=== PATIENT | female | born 1960 | race African-American/Black ===

== ENCOUNTER 2019-06-15 09:32 | Emergency (ER) | payer OTHER ==
[2019-06-15] MEDS ORDERED: IPRATROPIUM BROM 0.5MG/2.5ML ONE (10:02)
[2019-06-15] MEDS ORDERED: LEVALBUTEROL 1.25 MG/3 ML NEB ONE (10:02)
[2019-06-15] MEDS ORDERED: METHYLPREDNISOLONE 125 MG INJ ONE (10:02)
[2019-06-15] MEDS ORDERED: NA CHLORIDE 0.9% 1,000 ML ONE (10:03)
[2019-06-15] MEDS ORDERED: MAGNESIUM SULFATE 1 gm IVPB 1 GM/100 ML BAG IV ONE (10:03)
--- NOTE | 2019-06-15 10:36 | RAD REPORT ---
EXAM DESCRIPTION: RAD - Chest Single View - 06/15/2019 10:25 am CLINICAL HISTORY: SOB Chest pain. COMPARISON: Chest Pa And Lat (2 Views) dated 03/25/2018; CHEST PA AND LAT 2 VIEW dated 12/19/2007; CHES T PA AND LAT 2 VIEW dated 11/15/2000 FINDINGS: Portable technique limits examination quality. The lungs are grossly clear. The heart is normal in size. No displaced fractures. IMPRESSION: No acute intrathoracic process suspected.
--- NOTE | 2019-06-15 12:36 | ER ---
Nurse's Notes [facility] Name: Betsy Escoto Age: 58 yrs Sex: Female : 1960 Arrival Date: 06/15/2019 Time: 09:35 Bed 2 Private MD: Diagnosis: Asthma Presentation: 06/15 09:46 Presenting complaint: Patient states: SOB x 3 days that got worse today. Pt states aa5 "It's my asthma". Transition of care: patient was not received from another setting of care. Onset of symptoms was June 15, 2019. Risk Assessment: Do you want to hurt yourself or someone else? Patient reports no desire to harm self or others. Care prior to arrival: None. 09:46 Acuity: SABINO 3 aa5 09:46 Method Of Arrival: Ambulatory aa5 Historical: - Allergies: 09:47 Aleve; aa5 09:48 Advil; aa5 - PMHx: 09:48 Asthma; aa5 - PSHx: 09:48 Hysterectomy; aa5 - Immunization history:: Pneumococcal vaccine is up to date, Flu vaccine is not up to date. - Social history:: Smoking status: Patient/guardian denies using tobacco. - Ebola Screening: : No symptoms or risks identified at this time. - Family history:: not pertinent. - Hospitalizations: : No recent hospitalization is reported. Screenin:15 Abuse screen: Denies threats or abuse. Denies injuries from another. Nutritional sg screening: No deficits noted. Tuberculosis screening: No symptoms or risk factors identified. Never had TB. Fall Risk None identified. Assessment: 10:15 General: Appears in no apparent distress. well groomed, well developed, well nourished, sg Behavior is calm, cooperative, appropriate for age. Pain: Denies pain. Neuro: Level of Consciousness is awake, alert, obeys commands, Oriented to person, place, time, Professor Of German are equal bilaterally Moves all extremities. Speech is normal, Facial symmetry appears normal. Cardiovascular: Capillary refill is brisk in bilateral fingers Patient's skin is warm and dry. Chest pain is denied. Respiratory: Reports shortness of breath on exertion Airway is patent Respiratory effort is even, unlabored, Respiratory pattern is regular, symmetrical, Breath sounds are clear. GI: Abdomen is round non-distended, Reports tolerance of fluids, tolerance of food. : No signs and/or symptoms were reported regarding the genitourinary system. EENT: Nares are clear bilaterally Oral mucosa is moist. Derm: Skin is intact, is healthy with good turgor, Skin is dry, Skin is normal, Skin temperature is warm. Musculoskeletal: Circulation, motion, and sensation intact. Range of motion: intact in all extremities. 10:40 Reassessment: Patient appears in no apparent distress at this time. sg Vital Signs: 09:48 BP 146 / 85; Pulse 105; Resp 24 S; Temp 97.8(TE); Pulse Ox 95% on R/A; Weight 60.78 kg aa5 (R); Height 4 ft. 11 in. (149.86 cm) (R); Pain 0/10; 12:01 BP 146 / 78; Pulse 105; Resp 20; Pulse Ox 96% on R/A; jb1 09:48 Body Mass Index 27.06 (60.78 kg, 149.86 cm) aa5 ED Course: 09:35 Patient arrived in ED. mr 09:46 Arm band placed on. aa5 09:47 Triage completed. aa5 09:49 Jonathan Donovan MD is Attending Physician. rn 10:03 Inserted saline lock: 22 gauge in right antecubital area, using aseptic technique. jb1 10:14 Charles Roblero, RN is Primary Nurse. sg 10:15 Patient has correct armband on for positive identification. Bed in low position. Call sg light in reach. Side rails up X2. nurse monitoring on. Pulse ox on. NIBP on. Warm blanket given. Head of bed elevated. 10:24 EKG done, by small electric engine technician. reviewed by Jonathan Donovan MD. tc 10:32 XRAY Chest (1 view) In Process Unspecified. EDMS 12:50 No provider procedures requiring assistance completed. IV discontinued, intact, sg bleeding controlled, No redness/swelling at site. Pressure dressing applied. Administered Medications: 10:10 Drug: Xopenex (3) 1.25 mg Route: Inhalation; sg 10:10 Drug: AtroVENT Aerosol 0.5 mg Route: Inhalation; sg 10:10 Drug: NS 0.9% 1000 ml Route: IV; Rate: 1000 ml; Site: right antecubital; sg 10:10 Drug: Magnesium Sulfate 1 grams Route: IVPB; Infused Over: 1 hrs; Site: right sg antecubital; 10:10 Drug: SOLU-Medrol 125 mg Route: IVP; Site: right antecubital; Outcome: 12:35 Discharge ordered by . rn 12:51 Discharged to home ambulatory, with family. sg 12:51 Condition: good 12:51 Discharge instructions given to patient, family, Instructed on discharge instructions, follow up and referral plans. medication usage, safety practices, Demonstrated understanding of instructions, follow-up care, medications, Prescriptions given X 2. 12:52 Patient left the ED. sg Signatures: Dispatcher [employer] EDMS Deonte Frederick jb1 Charles Roblero RN RN Letha Pride mr Jonathan Donovan MD MD rn Calderon, Audri, RN RN aa5 Yanci Rojo, technical advisor EKG Ttc
--- NOTE | 2019-06-15 12:37 | EDPHYS ---
Physician Documentation [facility] Name: Betsy Escoto Age: 58 yrs Sex: Female : 1960 Arrival Date: 06/15/2019 Time: 09:35 Bed 2 Private MD: ED Physician Jonathan Donovan HPI: 06/15 09:55 This 58 yrs old Black Female presents to ER via Ambulatory with complaints of Asthma rn Exacerbation. 09:55 The patient presents to the emergency department with wheezing, the patient was rn reported to have audible wheezing, productive cough. Onset: The symptoms/episode began/occurred 3 day(s) ago. Modifying factors: The symptoms are alleviated by nothing, the symptoms are aggravated by nothing. Severity of symptoms: At their worst the symptoms were moderate in the emergency department the symptoms are unchanged. The patient has experienced similar episodes in the past. Reports every June gets asthma attacks, does not take preventative medication as supposed to, + mild cough, no hemoptysis, no fever, no chest pain. Historical: - Allergies: 09:47 Aleve; aa5 09:48 Advil; aa5 - PMHx: 09:48 Asthma; aa5 - PSHx: 09:48 Hysterectomy; aa5 - Immunization history:: Pneumococcal vaccine is up to date, Flu vaccine is not up to date. - Social history:: Smoking status: Patient/guardian denies using tobacco. - Ebola Screening: : No symptoms or risks identified at this time. - Family history:: not pertinent. - Hospitalizations: : No recent hospitalization is reported. ROS: 09:55 Constitutional: Negative for fever, chills, and weight loss, Eyes: Negative for injury, rn pain, redness, and discharge, Neck: Negative for injury, pain, and swelling, Cardiovascular: Negative for chest pain, palpitations, and edema, Respiratory: + sob and wheezing Abdomen/GI: Negative for abdominal pain, nausea, vomiting, diarrhea, and constipation, MS/Extremity: Negative for injury and deformity, Skin: Negative for injury, rash, and discoloration, Neuro: Negative for headache, weakness, numbness, tingling, and seizure. Exam: 09:55 Constitutional: This is a well developed, well nourished patient who is awake, alert, rn and in no acute distress. Head/Face: Normocephalic, atraumatic. Eyes: Pupils equal round and reactive to light, extra-ocular motions intact. Lids and lashes normal. Conjunctiva and sclera are non-icteric and not injected. Cornea within normal limits. Periorbital areas with no swelling, redness, or edema. ENT: dry MM Cardiovascular: tachycardic, regular, no murmur Respiratory: + mild tachypnea with diffuse inspiratory and exp wheezing Abdomen/GI: soft, non-tender MS/ Extremity: Pulses equal, no cyanosis. Neurovascular intact. Full, normal range of motion. Equal circumference. Neuro: Awake and alert, GCS 15, oriented to person, place, time, and situation. Cranial nerves II-XII grossly intact. Motor strength 5/5 in all extremities. Sensory grossly intact. Cerebellar exam normal. Vital Signs: 09:48 BP 146 / 85; Pulse 105; Resp 24 S; Temp 97.8(TE); Pulse Ox 95% on R/A; Weight 60.78 kg aa5 (R); Height 4 ft. 11 in. (149.86 cm) (R); Pain 0/10; 12:01 BP 146 / 78; Pulse 105; Resp 20; Pulse Ox 96% on R/A; jb1 09:48 Body Mass Index 27.06 (60.78 kg, 149.86 cm) aa5 MDM: 09:49 Patient medically screened. rn 12:34 Differential diagnosis: acute asthma. Data reviewed: vital signs, nurses notes, rn radiologic studies, plain films, and as a result, I will discharge patient. Counseling: I had a detailed discussion with the patient and/or guardian regarding: the historical points, exam findings, and any diagnostic results supporting the discharge/admit diagnosis, radiology results, the need for outpatient follow up, to return to the emergency department if symptoms worsen or persist or if there are any questions or concerns that arise at home. Response to treatment: the patient's symptoms have markedly improved after treatment, and as a result, I will discharge patient. Special discussion: I discussed with the patient/guardian in detail that at this point there is no indication for admission to the hospital. It is understood, however, that if the symptoms persist or worsen the patient needs to return immediately for re-evaluation. ED course: Recommended more consistent asthma preventative care, cxr negative, will dc home.. 12:44 ED course: Markedly improved, requests to go home.. rn 06/15 09:54 Order name: XRAY Chest (1 view); Complete Time: 11:34 rn 06/15 09:54 Order name: IV Start; Complete Time: 10:03 rn 06/15 09:54 Order name: EKG; Complete Time: 09:55 rn 06/15 09:54 Order name: EKG - Nurse/Tech; Complete Time: 10:36 rn Administered Medications: 10:10 Drug: Xopenex (3) 1.25 mg Route: Inhalation; sg 10:10 Drug: AtroVENT Aerosol 0.5 mg Route: Inhalation; sg 10:10 Drug: NS 0.9% 1000 ml Route: IV; Rate: 1000 ml; Site: right antecubital; sg 10:10 Drug: Magnesium Sulfate 1 grams Route: IVPB; Infused Over: 1 hrs; Site: right sg antecubital; 10:10 Drug: SOLU-Medrol 125 mg Route: IVP; Site: right antecubital; sg Disposition: 06/15/19 12:35 Discharged to Home. Impression: Asthma. - Condition is Stable. - Discharge Instructions: Asthma, Acute Bronchospasm. - Prescriptions for Prednisone 20 mg Oral Tablet - take 3 tablet by ORAL route once daily for 5 days; 15 tablet. Albuterol Sulfate 90 mcg/actuation - inhale 1-2 puff by INHALATION route every 4-6 hours; 1 Inhaler. - Work release form, Medication Reconciliation Form, Thank You Letter, Antibiotic Education, Prescription Opioid Use form. - Follow up: Private Physician; When: As needed; Reason: Recheck today's complaints, Re-evaluation by your physician. - Problem is new. - Symptoms have improved. Signatures: Dispatcher [employer] EDMS Charles Roblero RN RN sg Jonathan Donovan MD MD rn Calderon, Audri RN RN aa5 Corrections: (The following items were deleted from the chart) 12:52 12:35 06/15/2019 12:35 Discharged to Home. Impression: Asthma. Condition is Stable. sg Forms are Medication Reconciliation Form, Thank You Letter, Antibiotic Education, Prescription Opioid Use. Follow up: Private Physician; When: As needed; Reason: Recheck today's complaints, Re-evaluation by your physician. Problem is new. Symptoms have improved. rn
--- NOTE | 2019-06-16 11:40 | EKG ---
Test Date: 2019-06-15 Test Time: 10:12:12 Director Of District Office: MARTIN MEASUREMENT RESULTS: Intervals: Rate: 105 CT: 160 QRSD: 68 QT: 378 QTc: 499 [place]: P: 70 CT: 160 QRS: 49 T: 0 INTERPRETIVE STATEMENTS: Sinus tachycardia with frequent premature ventricular complexes ST & T wave abnormality, consider inferior ischemia Abnormal ECG No previous ECG available for comparison Electronically Signed On 06-16-19 11:39:36 CDT by Levi Navarrete
== END 2019-06-15 12:52 | disposition home or self-care (01) ==
LOC: ER 09:32
DX: J45.909 Unspecified asthma, uncomplicated (principal)
CPT/HCPCS: 93005; 71045; 96375; 96374; 99285; J3475; J7030; J2930